=== PATIENT | female | born 1935 | race Caucasian/White ===

== ENCOUNTER 2019-01-11 13:28 | Inpatient (IN) | payer MEDICARE ==
[~2019-01-11] VITALS: Ht 157.5 cm; Wt 68.0 kg
[2019-01-11] MEDS ORDERED: CYAN100T3 PO (14:07)
[2019-01-11] MEDS ORDERED: NADO80TA14 PO (14:07)
[2019-01-11] MEDS ORDERED: MEMA10TA21 PO (14:07)
[2019-01-11] MEDS ORDERED: MULT-1168 PO (14:07)
[2019-01-11] MEDS ORDERED: CALC1TAB PO (14:07)
[2019-01-11] MEDS ORDERED: ASPI-1169 PO (14:07)
--- NOTE | 2019-01-11 14:35 | NUR ---
PT RE C'D TO ER VIA EMS PT FELL DOWN 3 STEPS RT EYE SWOLLEN AND UPPER LIP LAC POSS KO SENT TO CT IV STARTED 20G RT WRIST LABS DRAWN SENT VSS
[2019-01-11 14:37] LABS: BASOPHILS # (AUTO) 0.1 /CMM (0.0-0.2); BASOPHILS % (AUTO) 0.5 % (0.0-2.0); EOSINOPHILS % (AUTO) 0.3 % (0.0-6.0); HEMATOCRIT 41 % (33-45); HEMOGLOBIN 13.6 g/dL (11.5-14.8); LYMPHOCYTES # (AUTO) 1.9 /CMM (0.8-4.8); LYMPHOCYTES % (AUTO) 14.3 % (20.0-44.0); MEAN CORPUSCULAR HGB CONC 33 g/dl (31.0-36.0); MEAN CORPUSCULAR VOLUME 92 fL (82-100); MONOCYTES % (AUTO) 7.2 % (2.0-12.0); NEUTROPHILS # (AUTO) 10.6 /CMM (1.8-8.9); NEUTROPHILS % (AUTO) 77.7 % (43.0-81.0); PLATELET COUNT (AUTO) 298 /CMM (150-450); RED BLOOD CELL COUNT(AUTO) 4.46 MIL/uL (4.0-5.2); WHITE BLOOD COUNT (AUTO) 13.6 K/uL (4.3-11.0)
[2019-01-11 14:50] LABS: CALCIUM, SERUM 9.6 mg/dL (8.5-10.1); CARBON DIOXIDE 30 mmol/L (21-32); CHLORIDE 105 mmol/L (98-107); CREATININE 0.9 mg/dL (0.6-1.3); GLUCOSE 147 mg/dL (74-106); POTASSIUM 4.2 mmol/L (3.5-5.1); SODIUM SERUM 142 mmol/L (136-145); UREA NITROGEN, BLOOD 15 mg/dL (7-18)
[2019-01-11] MEDS ORDERED: LIDOCAINE 1% INJ 50 ML MDV IJ ONE (14:55)
--- NOTE | 2019-01-11 14:55 | NUR ---
CALLED FOR TELE BED, TURNED IN MOVE SHEET
[2019-01-11 14:56] LABS: ALANINE AMINOTRANSFERASE 19 U/L (12-78); ALBUMIN 3.2 g/dL (3.4-5.0); ALKALINE PHOSPHATASE 92 U/L (46-116); ASPARTATE AMINOTRANSFERASE 17 U/L (15-37); BILIRUBIN,DIRECT 0.2 mg/dL (0.0-0.2); BILIRUBIN,TOTAL 1.2 mg/dL (0.2-1.0)
--- NOTE | 2019-01-11 15:18 | NUR ---
UP GRADED TO ICU, PER DR MATHEWS
[2019-01-11] MEDS ORDERED: LEVETIRACETAM (500MG) 500 MG in IV NS 0.9% 100 ML IV ONE (15:30)
--- NOTE | 2019-01-11 16:05 | NUR ---
PAGED EPIC DR MENDOZA)
--- NOTE | 2019-01-11 16:11 | NUR ---
ICU BED 263
--- NOTE | 2019-01-11 16:28 | NUR ---
PT GIVEN KEPPRA IVP PER MD ORDER
[2019-01-11] MEDS ORDERED: ONDANSETRON HCL/PF 4 MG/2 ML VIAL IVP PRN (17:30)
[2019-01-11] MEDS ORDERED: ACETAMINOPHEN 325 MG TABLET PO PRN (17:30)
[2019-01-11] MEDS ORDERED: MAG HYDROX/AL HYDROX/SIMETH 30 ML UDC PO PRN (17:30)
[2019-01-11] MEDS ORDERED: MAGNESIUM HYDROXIDE 30 ML UDC PO PRN (17:30)
[2019-01-11] MEDS ORDERED: Z GUARD REMEDY 2 OZ OINT TP PRN (17:30)
[2019-01-11] MEDS ORDERED: ZOLPIDEM TARTRATE 5 MG TABLET PO PRN (17:30)
[2019-01-11] MEDS ORDERED: HYDROCODONE/APAP 5/325MG 1 EACH TABLET PO PRN (17:30)
[2019-01-11] MEDS ORDERED: hydrALAZINE HCL 25 MG TABLET PO PRN (17:30)
[2019-01-11] MEDS ORDERED: MORPHINE SULFATE INJ 2 MG/ML DISP.SYRIN IV PRN (17:30)
[2019-01-11] MEDS ORDERED: NADOLOL 40 MG TABLET PO SCH (18:00)
--- NOTE | 2019-01-11 18:13 | NUR ---
REPORT GIVEN TO NABOR SANABRIA FOR [facility],TRANFER TO ICU 263 MONITORED WITH ERICK RODRIGUES AND ERIC SANABRIA.
[2019-01-11 18:30] VITALS: BP 113/49
--- NOTE | 2019-01-11 18:30 | NUR ---
RN NOTES RECEIVED PT FROM ER IN ROOM 263, ICU STATUS , PT IS A/Ox1, MOVES ALL EXTREMITIES , CONFUSED , ON RA , NO SOB NOTED, ON TELE SR HR IN 60' , R FA IV SITE G 20 INTACT, SKIN PHOTO TAKEN,EDEMA AND ECCHYMOSIS NOTED TO R SIDE OF THE FACE, SR UP x3, CALL LIGHT WITHIN EASY REACH, BED LOCKED AND IN LOWEST POSITION, BED ALARM ON FOR PT SAFETY, WILL ENDOSE TO PRESS OPERATOR CARBON BLOCKS NURSE FOR CONTINUITY OF CARE .
[2019-01-11] MEDS: IV NS 0.9% 1,000 ML IV PRN (18:41)
[2019-01-11 18:45] VITALS: BP 109/60
[2019-01-11 20:00] VITALS: BP_SYST 100; BP_SYST 106; BP_DIAS 40; BP_DIAS 54
--- NOTE | 2019-01-11 20:00 | NUR ---
PATENT AGENT NOTES RECEIVED PTS IN BED AWAKE ALERT AND CONFUSED , ON MONITOR SINUS RHYTM , V/S STABLE AFEBRILE , ON R/A SATING 98% NO SOB NO DISTRESS NOTED , BREATHING EVEN AND UNLABORED .PTS WITH IV HEPLOCK ON RIGHT FA G#20 INTACT AND PATENT IVF OF NS AT 75CC/HR INFUSING WELL. ALL NEEDS ATTENDED TOO CALL LIGHT WITHIN REACH , LOPRESSOR ON HOLD D/T BP 100/52 , KEPT PTS CLEAN DRY AND COMFORTABLE . NEURO CHECK DONE ORDERED PTS ALERT ORIENTED WITH CONFUSION .WILL CONTINUE TO MONITOR PTS.FAMILY AT BEDSIDE AND SON MANJINDER UPDATED WITH PTS CONDITION .
[2019-01-11] MEDS: METOPROLOL TARTRATE 50 MG TABLET PO SCH (21:00)
[2019-01-11 21:01] VITALS: BP 101/54
[2019-01-11 22:01] VITALS: BP 108/52
[2019-01-11 23:00] VITALS: BP 96/58
[2019-01-12] VITALS (32 sets, daily range): BP systolic 93–136; BP diastolic 37–74
--- NOTE | 2019-01-12 00:31 | NUR ---
RAIL LOADER NOTES TEMP OF 99.9 -TYLENOL 650MG GIVEN ORDERED, WILL CONTINUE TO MONITOR .
--- NOTE | 2019-01-12 04:00 | NUR ---
agricultural science professor notes temp recheck 98.5 pts remains alert and responsive with period of confusion kristy tejas at bedside updated with pts condition, will endorse to rn day shift for continuity of care.
[2019-01-12 04:44] LABS: BASOPHILS # (AUTO) 0.1 /CMM (0.0-0.2); BASOPHILS % (AUTO) 0.5 % (0.0-2.0); EOSINOPHILS % (AUTO) 0.2 % (0.0-6.0); HEMATOCRIT 34 % (33-45); HEMOGLOBIN 11.5 g/dL (11.5-14.8); LYMPHOCYTES # (AUTO) 3.2 /CMM (0.8-4.8); LYMPHOCYTES % (AUTO) 33.5 % (20.0-44.0); MEAN CORPUSCULAR HGB CONC 34 g/dl (31.0-36.0); MEAN CORPUSCULAR VOLUME 92 fL (82-100); MONOCYTES # (AUTO) 1.3 /CMM (0.1-1.30); MONOCYTES % (AUTO) 13.2 % (2.0-12.0); NEUTROPHILS # (AUTO) 5.1 /CMM (1.8-8.9); NEUTROPHILS % (AUTO) 52.6 % (43.0-81.0); PLATELET COUNT (AUTO) 233 /CMM (150-450); WHITE BLOOD COUNT (AUTO) 9.7 K/uL (4.3-11.0)
[2019-01-12 05:03] LABS: CALCIUM, SERUM 8.7 mg/dL (8.5-10.1); CARBON DIOXIDE 26 mmol/L (21-32); CHLORIDE 107 mmol/L (98-107); CREATININE 0.8 mg/dL (0.6-1.3); GLUCOSE 109 mg/dL (74-106); PHOSPHORUS 3.2 mg/dL (2.5-4.9); POTASSIUM 3.6 mmol/L (3.5-5.1); SODIUM SERUM 140 mmol/L (136-145); UREA NITROGEN, BLOOD 17 mg/dL (7-18)
[2019-01-12 05:10] LABS: CHOLESTEROL 132 mg/dL (<200); HDL CHOLESTEROL 36 mg/dL (40-60); LDL 88 mg/dL (0-99); TRIGLYCERIDES 60 mg/dL (30-150)
--- NOTE | 2019-01-12 07:11 | NUR ---
RECEIVED CARE OF PATIENT. AWAKE AND ALERT A/OX2 FORGETFUL AT BASELINE PER AT BEDSIDE. PATIENT TELE NSR. IV SITE C/D/I/ WITH IVF PER ORDER. PATIENT AND STAT RIGHT EYE WAS SWOLLEN SHUT AND TODAY SWELLING DECREASED AND PATIENT IS WITHOUT BLURRY OR ALTERED VISION. SUTURES IN PLACE RIGHT LIP/ NO S/S INFECTION. PATIENT SKIN, SAFETY, ASPIRATION PRECAUTIONS IN PLACE AND WILL MONITOR
[2019-01-12] MEDS: METOPROLOL TARTRATE 50 MG TABLET PO SCH ×2 (08:06→21:47)
[2019-01-12] MEDS: IV NS 0.9% 1,000 ML IV PRN (08:06)
[2019-01-12] MEDS: MEMANTINE HCL 5 MG TABLET PO SCH ×2 (09:16→16:49)
--- NOTE | 2019-01-12 16:07 | NUR ---
NOTIFIED DR LATIF OF PATIENT UPDATED HEAD CT. PER MD HOLD DISCHARGE AND ORDER ANOTHER REPEAT HEAD CT IN THE AM 01/13
[2019-01-12] MEDS ORDERED: NADOLOL 40 MG TABLET PO SCH (18:00)
--- NOTE | 2019-01-12 18:52 | NUR ---
ALL DUE MEDS GIVEN AND ALL NEEDS MET. PATIENT CALM AND COOPERATIVE. NO S/S BLEEDING. ZUHAIR VISUAL DEFECTS. SWELLING DIMINISHED PER PATIENT AND TO FACE. SKIN, SAFETY, ASPIRATION , AND FALL PRECAUTIONS IN PLACE AND MONITORED.
--- NOTE | 2019-01-12 20:00 | NUR ---
STOCK RANCH SUPERVISOR NOTE RECEIVED PT IN BED A/O X 2, FORGETFUL AND CONFUSED. AT BED SIDE. NO SOB, NO DISTRESS OR DISCOMFORT NOTED. DENIES ANY PAIN. RT SIDE FACE WITH SWELLING AND BRUISES. SUTURES ON RIGHT UPPER LIP, INTACT AND NO S/S OF INFECTION OR BLEEDING NOTED. RFA #20 G INFUSING NS @ 75 ML/HR, NO S/S OF INFILTRATION NOTED. ALL NEEDS ATTENDED. SIDE RAILS UP X 2 AND CALL LIGHT WITHIN REACH. VSS. CONTINUE TO MONITOR HER.
[2019-01-13] VITALS (15 sets, daily range): BP systolic 90–139; BP diastolic 37–83
--- NOTE | 2019-01-13 03:00 | NUR ---
OFFICE CLINICIAN NOTE PT IS VERY CONFUSED AND FORGETFUL KEPT ON PULLING WIRES AND KEPT ON GETTING OUT OF BED. REORIENTED HER OF SURROUNDINGS AND KEPT BED ALARM ON. WATCHED HER CLOSELY FOR SAFETY.
[2019-01-13] MEDS: IV NS 0.9% 1,000 ML IV PRN (04:51)
--- NOTE | 2019-01-13 06:59 | NUR ---
SHAREPOINT TRAINER NOTE PT IN BED AWAKE. CONFUSED. KEPT ON GETTING OUT OF BED. WATCHED HER CLOSED DURING THE NIGHT. NO FALLS OR INJURY NOTED. ALL NEEDS ATTENDED. ON TELE MONITOR SB HR 56. IVF NS INFUSING WELL, NO S/S OF INFILTRATION NOTED. SIDE RAILS UP X 2 AND CALL LIGHT WITHIN REACH. WILL ENDORSE TO DAY SHIFT NURSE FOR CONTINUE TO CARE.
--- NOTE | 2019-01-13 07:30 | NUR ---
EXPORT FREIGHT SPECIALIST OPENING NOTE RECEIVED REPORT FROM PM NURSE. PT IN BED A/O X 1, FORGETFUL AND CONFUSED. NO SOB, NO DISTRESS OR DISCOMFORT NOTED.ON ROOM AIR. DENIES ANY PAIN. RT SIDE FACE WITH SWELLING AND BRUISES. SUTURES ON RIGHT UPPER LIP, INTACT AND NO S/S OF INFECTION OR BLEEDING NOTED. RFA #20 G INFUSING NS @ 75 ML/HR, NO S/S OF INFILTRATION NOTED. ALL NEEDS ATTENDED. SIDE RAILS UP X 2 AND CALL LIGHT WITHIN REACH. BED IS LOCKED AND IN LOW POSITION.BED ALARM ON. CONTINUE TO MONITOR .
[2019-01-13] MEDS: METOPROLOL TARTRATE 50 MG TABLET PO SCH (08:06)
[2019-01-13] MEDS: MEMANTINE HCL 5 MG TABLET PO SCH (08:22)
--- NOTE | 2019-01-13 09:00 | NUR ---
ANIMAL RIDE ATTENDANT NOTE PATIENT IS NON COMPLAINT WITH SAFETY INSTRUCTIONS.KEEP ON GETTING UP FROM BED AND REMOVING TUBES AND LINES.ABLED BILATERAL SOFT RESTRAINT.WILL CONTINUE TO MONITOR.
--- NOTE | 2019-01-13 13:23 | NUR ---
KOSHER DIETARY SERVICE MANAGER NOTE SEEN BY ,UPDATED ABOUT PATIENT CONDITION WITH CT RESULT.OK TO D/C HOME.SPOKE TO PATIENT .DISCHARGE INSTRUCTIONS GIVEN TO PATIENT AND .EXIT CARE GIVEN .VERBALIZED UNDERSTANDING.ANSWERED ALL QUESTIONS. SPECIAL EDUCATION GIVEN ABOUT FALL PREVENTION AND S/S TO MONITOR.SIGNED BELONGING SHEET.VITAL SIGNS STABLE.WILL CONTINUE TO MONITOR.
--- NOTE | 2019-01-13 13:40 | NUR ---
DIRECTOR OF CLINICAL SERVICES NOTE PATIENT D/C HOME WITH IN STABLE CONDITION.NO SOB NO DISTRESS NOTED.AXOX1 WITH CONFUSION AND FORGETFULNESS.DISCHARGE INSTRUCTIONS GIVEN BY TO PATIENT AND FAMILY.VERBALIZED UNDERSTANDING.SPECIAL INSTRUCTIONS GIVEN REGARDING AFTER AND FOLLOW UP.TOOK ALL BELONGINGS AND DISCHARGE SUMMARY..IV REMOVED .PRESSURE DRESSING APPLIED.ACCOMPANIED TO PARKING LOT.LEFT WITH IN PRIVATE CAR.
== END 2019-01-13 13:40 | disposition home or self-care (01) | DRG 85 ==
LOC: ER 13:31 → ICU 16:17
PROVIDERS: ADMIT Internal Medicine; ATTEND Internal Medicine
PROC: 0CQ0XZZ Repair Upper Lip, External Approach (ICD-10-PCS; principal; 2019-01-11)
DX: S06.6X0A Traumatic subarachnoid hemorrhage without loss of consciousness, initial encounter (principal); S06.1X0A Traumatic cerebral edema without loss of consciousness, initial encounter; G30.9 Alzheimer's disease, unspecified; F02.80 Dementia in other diseases classified elsewhere, unspecified severity, without behavioral disturbance, psychotic disturbance, mood disturbance, and anxiety; I10 Essential (primary) hypertension; K21.9 Gastro-esophageal reflux disease without esophagitis; T44.7X5A Adverse effect of beta-adrenoreceptor antagonists, initial encounter; Y92.89 Other specified places as the place of occurrence of the external cause; W19.XXXA Unspecified fall, initial encounter; S00.03XA Contusion of scalp, initial encounter; J32.4 Chronic pansinusitis; D72.829 Elevated white blood cell count, unspecified; S09.93XA Unspecified injury of face, initial encounter; R00.1 Bradycardia, unspecified; S01.511A Laceration without foreign body of lip, initial encounter; E78.5 Hyperlipidemia, unspecified; R40.2412 Glasgow coma scale score 13-15, at arrival to emergency department
CPT/HCPCS: 36415; 70450-TC; 70486-TC; 71045-TC; 72125-TC; 80048-TC; 80061-TC; 80076-TC; 83735-TC; 84100-TC; 84484-TC; 85025-TC; 85730-TC; 87081-TC; 93307-TC; 97116-TC; 97530-TC; A6403; G0378; J1953; J3490; J7030

== ENCOUNTER 2019-07-04 10:03 | Inpatient (IN) | payer MEDICARE ==
[~2019-07-04] VITALS: Ht 170.2 cm; Wt 56.7 kg
[~2019-07-04 10:03] MED LIST: CALC1TAB PO; CYAN100T3 PO; MEMA10TA56 PO; MULT-1168 PO
--- NOTE | 2019-07-04 10:15 | NUR ---
PEPE ROSS 86 From Home " said she tripped and fell. Pain R Hip" Patient a/ox4, breathing even and unlabored, no sob noted, needs attended, patient positioned on her left side. Pain 4/10 at this time.
[2019-07-04] MEDS ORDERED: FENTANYL PF 100MCG/2ML AMPUL ONE (10:47)
[2019-07-04 10:55] LABS: BASOPHILS # (AUTO) 0.1 /CMM (0.0-0.2); BASOPHILS % (AUTO) 0.6 % (0.0-2.0); EOSINOPHILS % (AUTO) 0.7 % (0.0-6.0); HEMATOCRIT 34 % (33-45); HEMOGLOBIN 10.8 g/dL (11.5-14.8); LYMPHOCYTES % (AUTO) 15.3 % (20.0-44.0); MEAN CORPUSCULAR HGB CONC 32 g/dl (31.0-36.0); MEAN CORPUSCULAR VOLUME 84 fL (82-100); MONOCYTES % (AUTO) 7.8 % (2.0-12.0); NEUTROPHILS # (AUTO) 10.1 /CMM (1.8-8.9); NEUTROPHILS % (AUTO) 75.6 % (43.0-81.0); PLATELET COUNT (AUTO) 309 /CMM (150-450); RED BLOOD CELL COUNT(AUTO) 4.02 MIL/uL (4.0-5.2); WHITE BLOOD COUNT (AUTO) 13.3 K/uL (4.3-11.0)
--- NOTE | 2019-07-04 10:56 | NUR ---
IV LINE ESTABLISHED BLOOD DRAWN AND SENT TO LAB.
[2019-07-04] MEDS ORDERED: FENTANYL PF 100MCG/2ML AMPUL IV ONE (11:00)
[2019-07-04] MEDS ORDERED: MORPHINE SULFATE INJ 2 MG/ML DISP.SYRIN IV ONE (11:00)
[2019-07-04 11:03] LABS: CALCIUM, SERUM 9.4 mg/dL (8.5-10.1); CARBON DIOXIDE 31 mmol/L (21-32); CHLORIDE 106 mmol/L (98-107); CREATININE 0.8 mg/dL (0.6-1.3); GLUCOSE 132 mg/dL (74-106); POTASSIUM 4.3 mmol/L (3.5-5.1); SODIUM SERUM 143 mmol/L (136-145); UREA NITROGEN, BLOOD 16 mg/dL (7-18)
[2019-07-04] MEDS ORDERED: ASPI-605 PO (11:17)
[2019-07-04] MEDS ORDERED: DONE10TA11 PO (11:17)
[2019-07-04] MEDS ORDERED: NADO40TA18 PO (11:18)
--- NOTE | 2019-07-04 11:58 | NUR ---
CALLED [facility], WAITING FOR CALL BACK.
--- NOTE | 2019-07-04 12:10 | NUR ---
NURSING SUP NOTIFIED FOR BED ASSIGNMENT.
--- NOTE | 2019-07-04 12:10 | NUR ---
NAHUN ADLER, WAITING FOR CALL BACK.
--- NOTE | 2019-07-04 12:22 | NUR ---
MD FREDIS GAVIRIA.
--- NOTE | 2019-07-04 13:07 | NUR ---
followed up with nursing keypunch operators supervisor re: bed assignment
--- NOTE | 2019-07-04 13:30 | NUR ---
report given to Olvin SANABRIA for [facility]
--- NOTE | 2019-07-04 14:05 | NUR ---
patient transferred to room 203-1 in stable condition. Masterson catheter FR16 placed in via sterile technique.
--- NOTE | 2019-07-04 14:15 | NUR ---
MS RN OPENING NOTES RECEIVED PATIENT FROM ER VIA [facility]. ORIENTED PATIENT TO ROOM, CALL LIGHT AND UNIT. HOB ELEVATED. NO SOB. DENIES ANY C/O PAIN NOR DISCOMFORT AT THIS TIME DESPITE RIGHT HIP FRACTURE. CHARLES CATH INTACT DRAINING YELLOW COLORED URINE VIA BEDSIDE. IV ACCESS RT FA. SL INTACT AND PATENT. BED IN LOWEST POSITION, LOCKED. BED ALARM ON. CALL LIGHT WITHIN REACH. AT BEDSIDE.
[2019-07-04 16:00] VITALS: BP 127/60
[2019-07-04] MEDS ORDERED: ONDANSETRON HCL/PF 4 MG/2 ML VIAL IVP PRN (16:00)
[2019-07-04] MEDS ORDERED: MAGNESIUM HYDROXIDE 30 ML UDC PO PRN (16:00)
[2019-07-04] MEDS ORDERED: ACETAMINOPHEN 325 MG TABLET PO PRN (16:00)
[2019-07-04] MEDS ORDERED: Z GUARD REMEDY 2 OZ OINT TP PRN (16:00)
[2019-07-04] MEDS ORDERED: MORPHINE SULFATE INJ 2 MG/ML DISP.SYRIN IV PRN (16:00)
[2019-07-04] MEDS: DONEPEZIL 5 MG TABLET PO SCH (16:46)
[2019-07-04] MEDS: MEMANTINE HCL 5 MG TABLET PO SCH (16:46)
--- NOTE | 2019-07-04 19:20 | NUR ---
MS RN CLOSING NOTES ALERT AND ORIENTED X1. HOB ELEVATED. NO SOB. DENIES ANY C/O PAIN NOR DISCOMFORT AT THIS TIME EXCEPT DURING REPOSITIONING. PATIENT DENIES ANY PAIN NOR DISCOMFORT DURING INACTIVITY. PATIENT REQUIRES FREQUENT REMINDERS AND RE EDUCATION DUE TO CONFUSION AND FORGETFULNESS. CHARLES CATH INTACT DRAINING YELLOW COLORED URINE VIA BEDSIDE. IV ACCESS RT FA. SL INTACT AND PATENT. BED IN LOWEST POSITION, LOCKED. BED ALARM ON. CALL LIGHT WITHIN REACH. AND SON AT BEDSIDE.
--- NOTE | 2019-07-04 19:30 | NUR ---
SPECIAL FORCES ENGINEER SERGEANT: RECEIVED REPORT FROM DEWEY SANABRIA AT 1920. MET WITH PT AND FAMILY AT BED SIDE. PT HAS DEMENTIA, AND CONSTANTLY ASKING SAME QUESTIONS EVERY NOW AND THEN, HOWEVER PT APPEARS TO BE VERY PLEASANT AND CAN BE REDIRECTED. PT ADMITTED THIS AFTERNOON FOR S/P FALL WHEREIN SHE OBTAINED RIGHT HIP FRACTURE. SEEN BY ORTHO FOR RIGHT HIP HEMIARTHROPLASTY ON JUL 06 MORNING. SEEN BY CARTON LETTERING MACHINE OPERATOR FOR CARDIAC CLEARANCE AT 1915PM. IV ACCESS PATENT AND FLUSHING WELL, ON HL. DISCUSSED WITH PT AND FAMILY REGARDING PLAN OF CARE TONIGHT. ALL QUESTIONS/CONCERNS ANSWERED BASED ON PLAN OF CARE AND LATEST LAB/IMAGING RESULTS. SAFETY PRECAUTIONS FOR FALL INITIATED, CALL LIGHT IN REACH, WILL CONTINUE MONITORING PT.
[2019-07-04 20:00] VITALS: BP 111/61
[2019-07-04 20:00] LABS: APPEARANCE,URINE CLEAR (CLEAR); BILIRUBIN,URINE NEGATIVE (NEGATIVE); BLOOD, URINE LARGE Ery/uL (NEGATIVE); COLOR,URINE YELLOW (YELLOW); KETONES,URINE >=80 (NEGATIVE); LEUKOCYTE ESTERASE ,URINE NEGATIVE (NEGATIVE); NITRITE, URINE NEGATIVE (NEGATIVE); PH,URINE 7.5 (5.0-8.0); PROTEIN,URINE TRACE mg/dl (NEGATIVE); UGLUCOSE NEGATIVE (NEGATIVE); UROBILINOGEN,URINE 0.2 EU/dL (0.2)
--- NOTE | 2019-07-04 20:00 | NUR ---
RN NOTES: PER MD DEL CID, OKAY FOR /SON TO STAY OVERNIGHT FOR PT'S SAFETY, PT HAS DEMENTIA AND IS SUNDOWNER. HIGH RISK FOR FALL.
[2019-07-04 20:25] LABS: BACTERIA,URINE None seen /HPF (None Seen); RBC,URINE 51-80 /HPF (0-2); SQUAMOUS EPITHELIAL CELL,UR Few /HPF (None Seen)
[2019-07-04] MEDS: ENOXAPARIN SODIUM 40 MG/0.4 ML DISP.SYRIN SQ SCH (20:44)
[2019-07-04] MEDS ORDERED: ZOLPIDEM TARTRATE 5 MG TABLET PO PRN (22:00)
--- NOTE | 2019-07-05 06:00 | NUR ---
AM CARE: ASSISTED NURSE AUDITOR IN PROVIDING BED BATH TO PT. COMPLETE LINEN CHANGE PROVIDED.
--- NOTE | 2019-07-05 06:54 | NUR ---
END OF SHIFT SUMMARY: PT REMAINS A/O X1, DUE TO ADVANCE DEMENTIA/ALZHEIMER'S. PT'S SON STAYED WITH THE PT. PT ABLE TO MAKE HER NEEDS KNOWN. CHARLES CATHETER REMAINS IN PLACED, BAG DRAINING BY GRAVITY. IV ACCESS REMAINS PATENT AND FLUSHING WELL, ON HL. NO S/S OF IV INFILTRATION NOTED. PT REMAINS TO BE HIGH RISK FOR FALL. VS REMAINS STABLE, NEEDS ATTENDED. PT FOR SCHEDULE RIGHT HIP HEMIARTHROPLASTY ON SUNDAY MORNING JUL 06, [address] SHAFFER. SAFETY PRECAUTIONS FOR FALL REMAINS ENGAGED, CALL LIGHT IN REACH, WILL ENDORSE TO DAY RN FOR CONTINUITY OF CARE.
--- NOTE | 2019-07-05 07:10 | NUR ---
MS RN OPENING NOTES RECEIVED PATIENT IN BED ALERT AND AWAKE ORIENTED X1. NO SOB. DENIES ANY C/O PAIN NOR DISCOMFORT AT THIS TIME. CHARLES CATHETER INTACT AND PATENT DRAINING YELLOW COLORED URINE VIA GRAVITY VIA BEDSIDE. RT FA # 20 SL INTACT AND PATENT. BED IN LOWEST POSITION, LOCKED. BED ALARM ON. CALL LIGHT WITHIN REACH. BED SIDERAILS UP X2.
[2019-07-05 07:30] VITALS: BP_SYST 110; BP_SYST 123; BP_DIAS 66; BP_DIAS 69
[2019-07-05 07:51] LABS: CALCIUM, SERUM 9.3 mg/dL (8.5-10.1); CREATININE 0.8 mg/dL (0.6-1.3); MAGNESIUM 1.9 mg/dL (1.8-2.4); PHOSPHORUS 3.3 mg/dL (2.5-4.9); POTASSIUM 3.7 mmol/L (3.5-5.1)
[2019-07-05 07:52] LABS: BASOPHILS % (AUTO) 0.4 % (0.0-2.0); EOSINOPHILS % (AUTO) 0.1 % (0.0-6.0); HEMATOCRIT 30 % (33-45); HEMOGLOBIN 9.9 g/dL (11.5-14.8); LYMPHOCYTES # (AUTO) 2.7 /CMM (0.8-4.8); LYMPHOCYTES % (AUTO) 23.1 % (20.0-44.0); MEAN CORPUSCULAR HGB CONC 33 g/dl (31.0-36.0); MEAN CORPUSCULAR VOLUME 84 fL (82-100); MONOCYTES # (AUTO) 1.3 /CMM (0.1-1.30); MONOCYTES % (AUTO) 11.5 % (2.0-12.0); NEUTROPHILS # (AUTO) 7.5 /CMM (1.8-8.9); NEUTROPHILS % (AUTO) 64.9 % (43.0-81.0); PLATELET COUNT (AUTO) 271 /CMM (150-450); RED BLOOD CELL COUNT(AUTO) 3.62 MIL/uL (4.0-5.2); WHITE BLOOD COUNT (AUTO) 11.6 K/uL (4.3-11.0)
[2019-07-05] MEDS ORDERED: MULTIVITAMIN/LUTEIN/MINERALS 1 TAB PO SCH (09:00)
[2019-07-05] MEDS: CALCIUM CARB 600MG /VIT D 1 EACH TABLET PO SCH (10:04)
[2019-07-05] MEDS: MULTIPLE VIT (LYCOPENE/FA/MV,CA,IRON,MIN/LUT)1 TAB PO SCH (10:04)
[2019-07-05] MEDS: MEMANTINE HCL 5 MG TABLET PO SCH ×2 (10:05→18:14)
[2019-07-05] MEDS: DONEPEZIL 5 MG TABLET PO SCH (10:05)
[2019-07-05] MEDS: ASPIRIN EC 81 MG TABLET.DR PO SCH (10:05)
[2019-07-05] MEDS: IV NS 0.9% 1,000 ML IV PRN (12:55)
--- NOTE | 2019-07-05 17:52 | NUR ---
MS RN NOTES GERMAN BOND SPOKE TO PATIENT AND PATIENT'S AND DISCUSSED REGARDING RIGHT HIP INTRAMEDULLARY RODDING AND OBTAINED CONSENT AND ANSWERED ALL OF PATIENT'S AND FAMILY'S QUESTIONS.
--- NOTE | 2019-07-05 19:00 | NUR ---
MS RN NOTES ALERT AND AWAKE ORIENTED X1. NO S/S OF RESPIRATORY DISTRESS. DENIES ANY C/O PAIN NOR DISCOMFORT AT THIS TIME. CHARLES CATHETER INTACT AND PATENT DRAINING YELLOW COLORED URINE VIA GRAVITY VIA BEDSIDE. RT FA # 20 INTACT AND PATENT INFUSING NS @ 75ML/HR. BED IN LOWEST POSITION, LOCKED. BED ALARM ON. CALL LIGHT WITHIN REACH. BED SIDERAILS UP X2. FREQUENT VISUALLY CHECKED. AND SISTER AT BEDSIDE.
[2019-07-05 20:00] VITALS: BP 110/66
[2019-07-05] MEDS: ENOXAPARIN SODIUM 40 MG/0.4 ML DISP.SYRIN SQ SCH (20:57)
--- NOTE | 2019-07-05 22:00 | NUR ---
MS RN NOTES PATIENT PULLED PUT IV ACCESS TO LEFT FA. NEW IV ACCESS INSERTED TO RT WRIST #22 AND RIGHT AC # 20 WITH GOOD BLOOD RETURN. INTACT AND PATENT.
[2019-07-06] VITALS (11 sets, daily range): BP systolic 104–125; BP diastolic 48–84
--- NOTE | 2019-07-06 00:10 | NUR ---
MS RN NOTES PATIENT ASLEEP IN BED, AROUSABLE TO VERBAL AND TACTILE STIMULI. SON AT BEDSIDE.
--- NOTE | 2019-07-06 03:07 | NUR ---
MS RN NOTES VISUALLY CHECKED PATIENT, NOTED PATIENT DISROBING SELF. NEW GOWN PROVIDED,REALITY ORIENTATION AND REMINDERS PROVIDED.
[2019-07-06 06:22] LABS: BASOPHILS % (AUTO) 0.4 % (0.0-2.0); EOSINOPHILS % (AUTO) 0.5 % (0.0-6.0); HEMATOCRIT 28 % (33-45); LYMPHOCYTES # (AUTO) 2.6 /CMM (0.8-4.8); LYMPHOCYTES % (AUTO) 23.1 % (20.0-44.0); MEAN CORPUSCULAR HGB CONC 33 g/dl (31.0-36.0); MEAN CORPUSCULAR VOLUME 83 fL (82-100); MONOCYTES # (AUTO) 1.4 /CMM (0.1-1.30); MONOCYTES % (AUTO) 12.4 % (2.0-12.0); NEUTROPHILS % (AUTO) 63.6 % (43.0-81.0); PLATELET COUNT (AUTO) 246 /CMM (150-450); RED BLOOD CELL COUNT(AUTO) 3.33 MIL/uL (4.0-5.2)
[2019-07-06 06:39] LABS: CALCIUM, SERUM 8.6 mg/dL (8.5-10.1); CREATININE 0.7 mg/dL (0.6-1.3); MAGNESIUM 1.6 mg/dL (1.8-2.4); PHOSPHORUS 3.1 mg/dL (2.5-4.9); POTASSIUM 3.8 mmol/L (3.5-5.1)
[2019-07-06] MEDS: IV NS 0.9% 1,000 ML IV PRN (06:50)
--- NOTE | 2019-07-06 07:21 | NUR ---
MS RN OPENING NOTES RECEIVED PATIENT AWAKE IN BED IN NO ACUTE SIGN SOF DISTRESS. FAMILY AT BEDSIDE. A/O X1-2. VERBALLY RESPONSIVE, DENIES PAIN OR ANY DISCOMFORTS AT THIS TIME. ON ROOM AIR, BREATHING EVEN AND UNLABORED. PT FOR RIGHT HIP INTRAMEDULLARY RODDING TODAY, NPO MAINTAINED. CHARLES CATHETER INTACT AND PATENT DRAINING YELLOW COLORED URINE VIA GRAVITY AT BEDSIDE. RT WRIST # 22 SL AND RAC G#20 BOTH INTACT AND PATENT, IVF OF NS @ 75ML/HR INFUSING WELL. SAFETY MEASURES IN PLACE: BED IN LOWEST POSITION AND LOCKED. BED ALARM ON. CALL LIGHT WITHIN REACH. BED SIDE-RAILS UP X2. WILL CONTINUE TO MONITOR.
--- NOTE | 2019-07-06 07:21 | NUR ---
MS RN CLOSING NOTES PATIENT SLEPT ON AND OFF THROUGHOUT THE NIGHT. PATIENT WAKES UP AND LOOKS FOR . NO S/S OF RESPIRATORY DISTRESS. NPO SINCE MIDNIGHT FOR SURGERY SCHEDULED FOR RT HIP INTRAMEDULLARY RODDING WITH LOVENOX HELD ON 07/05/19. DENIES ANY C/O PAIN NOR DISCOMFORT AT THIS TIME. CHARLES CATHETER INTACT AND PATENT DRAINING YELLOW COLORED URINE VIA GRAVITY VIA BEDSIDE. RT WRIST # 22 SL INTACT AND PATENT. RT AC # 20 INTACT AND PATENT INFUSING NS @ 75ML/HR. NO S/S OF BLEEDING NOTED DURING THE SHIFT. BED IN LOWEST POSITION, LOCKED. BED ALARM ON. CALL LIGHT WITHIN REACH. BED SIDERAILS UP X2. IN NO APPARENT DISTRESS.
[2019-07-06] MEDS ORDERED: ANESTHESIA TRAY IN PYXIS 1 EA TRAY MC ONE (07:38)
[2019-07-06] MEDS ORDERED: BACITRACIN 50000 UNITS/VIAL ONE (07:39)
--- NOTE | 2019-07-06 07:48 | NUR ---
RN NOTES PT WHEELED BY O.RSenthil TRANSPORTER VIA HER BED TO SURGERY. FAMILY IN ROOM.
[2019-07-06] MEDS ORDERED: FENTANYL PF 100MCG/2ML AMPUL ONE (07:52)
[2019-07-06] MEDS: MEMANTINE HCL 5 MG TABLET PO SCH ×2 (09:00→16:59)
[2019-07-06] MEDS: DONEPEZIL 5 MG TABLET PO SCH (09:00)
[2019-07-06] MEDS: CYANOCOBALAMIN 100 MCG TABLET PO SCH (09:00)
[2019-07-06] MEDS: ASPIRIN EC 81 MG TABLET.DR PO SCH (09:00)
[2019-07-06] MEDS: CALCIUM CARB 600MG /VIT D 1 EACH TABLET PO SCH (09:00)
[2019-07-06] MEDS: MULTIPLE VIT (LYCOPENE/FA/MV,CA,IRON,MIN/LUT)1 TAB PO SCH (09:00)
--- NOTE | 2019-07-06 10:59 | NUR ---
RN NOTES PT RETURNED FROM SURGERY S/P RIGHT HIP IM RODDING BY DR SHAFFER. PT IS AWAKE, A/O X 1, RESTLESS AND TRYING TO PULL IV LINE AND CHARLES CATHETER. SEEN BY KATHERINE HOUSE WITH ORDER TO PUT PT ON HAND MITTENS FOR NOW UNTIL SHE CALM DOWN. PT ON ROOM AIR, TOLERATING WELL WITH NO SOB NOTED. B/L SCD'S IN PLACE. PT WITH TWO DRESSINGS IN PLACE: RIGHT HIP AND RIGHT LOWER THIGH, BOTH C/D/I. V.S CHECKED: BP 114/52, HP 59, R 18, T 97.8F AND SP02 99%. DR SHAFEFR WITH ORDER TO START LOVENOX 40MG SQ IN 24HRS IF HGB .9.WEIGHT BEARING IS WBAT. ALL POST OP ORDERS MADE PER MD ORDER. PT'S FAMILY AT BEDSIDE. WILL CONTINUE TO MONITOR.
[2019-07-06] MEDS: Magnesium 1GM/D5W 100ML PREMIX 100 ML IV SCH ×2 (12:03→13:37)
--- NOTE | 2019-07-06 14:25 | NUR ---
RN NOTES PATIENT CALM NOW, MORE RESPONSIVE AND ABLE TO FOLLOW COMMANDS. B/L HAND MITTENS REMOVED. WILL CONTINUE TO MONITOR
[2019-07-06] MEDS: ANCEF 1 GM/50 ML D5W IV SCH ×2 (16:06)
--- NOTE | 2019-07-06 18:32 | NUR ---
MS RN CLOSING NOTES PATIENT IN BED AWAKE WITH AT BEDSIDE. HOB ELEVATED. A/O X1-2, SAME VERBALLY RESPONSIVE. ON ROOM AIR, TOLERATING WELL WITH NO SOB NOTED. S/P RIGHT HIP INTRAMEDULLARY RODDING TODAY, DRESSING ON RIGHT HIP AND LOWER THIGH C/D/I. RT WRIST # 22 SL AND RAC G#20 BOTH INTACT AND PATENT, IVF OF NS @ 75ML/HR INFUSING WELL, NO S/S OF INFILTRATIONS NOTED. CHARLES CATHETER INTACT AND PATENT DRAINING CLEAR YELLOW COLORED URINE VIA GRAVITY AT BEDSIDE, CHARLES CARE DONE. SAFETY MEASURES KEPT IN PLACE: BED IN LOWEST POSITION AND LOCKED. BED ALARM ON. CALL LIGHT WITHIN REACH. BED SIDE-RAILS UP X2. ALL NEEDS AND CARE PROVIDED WELL. WILL ENDORSE TO MARINA DRY DOCK MANAGER NURSE FOR [facility].
--- NOTE | 2019-07-06 19:23 | NUR ---
MS/RN NOTES RECEIVED PT. LYING IN BED. PT. IS AWAKE, ALERT AND ORIENTED TO SELF. PT. IS CONFUSED AND NEEDS FREQUENT REORIENTATION. BREATHING EVEN AND UNLABORED ON ROOM AIR. NO SOB, RESPIRATORY DISTRESS OR COMPLAINTS OF PAIN NOTED AT THIS TIME. PT. WITH RIGHT WRIST 22 GAUGE IV SALINE LOCK PRESENT, PATENT AND INTACT. PT. WITH RIGHT AC 20 GAUGE PERIPHERAL IV PRESENT, PATENT AND INTACT ADMINISTERING TO PT. NS @ 75 ML/HR. PT. IS S/P RIGHT HIP IM RODDING TODAY 07/06/[address] SHAFFER. PT. HAS 2 POST OP DRESSING PRESENT ONE ON RIGHT HIP AND ONE ON RIGHT LOWER THIGH. BOTH DRESSINGS ARE CLEAN, DRY AND INTACT. NO BLEEDING OR DRAINAGE NOTED. PT. WITH CHARLES CATHETER PRESENT, PATENT AND INTACT. PT. PRESENT AT BEDSIDE. BED LOCKED AND IN LOWEST POSITION, SIDE RAILS UP X2, BED ALARM ON, CALL LIGHT WITHIN REACH, WILL CONTINUE TO MONITOR.
[2019-07-06] MEDS: HYDROCODONE/APAP 5/325MG 1 EACH TABLET PO PRN (23:51)
--- NOTE | 2019-07-06 23:52 | NUR ---
MS RN NOTE ADMINISTERED PRN NORCO 5MG FOR PAIN 4/10 IN RIGHT LEG AND KNEE.WILL CONTINUE TO MONITOR.
[2019-07-07] VITALS (9 sets, daily range): BP systolic 100–114; BP diastolic 44–65
[2019-07-07] MEDS: ANCEF 1 GM/50 ML D5W IV SCH ×4 (00:17→08:54)
[2019-07-07] MEDS: IV NS 0.9% 1,000 ML IV PRN (03:40)
--- NOTE | 2019-07-07 06:50 | NUR ---
MS/RN NOTES PT. IS LYING IN BED. PT. IS AWAKE, ALERT AND ORIENTED X 1-2. PT. IS CONFUSED AND NEEDS FREQUENT REORIENTATION. BREATHING EVEN AND UNLABORED ON ROOM AIR. NO SOB, RESPIRATORY DISTRESS OR COMPLAINTS OF PAIN NOTED AT THIS TIME. PT. WITH RIGHT WRIST 22 GAUGE IV SALINE LOCK PRESENT, PATENT AND INTACT. PT. WITH RIGHT AC 20 GAUGE PERIPHERAL IV PRESENT, PATENT AND INTACT ADMINISTERING TO PT. NS @ 75 ML/HR. PT. POST OP DRESSINGS PRESENT CLEAN, DRY AND INTACT. NO BLEEDING OR DRAINAGE NOTED. PT. WITH CHARLES CATHETER PRESENT, PATENT AND INTACT. ALL PT. NEEDS MET. PT. OFFLOADED, TURNED AND REPOSITIONED Q2H AND NEEDED. PT. DAUGHTER PRESENT AT BEDSIDE. BED LOCKED AND IN LOWEST POSITION, SIDE RAILS UP X2, BED ALARM ON, CALL LIGHT WITHIN REACH, WILL ENDORSE TO DAYSWVFT NURSE FOR CONTINUITY OF CARE.
[2019-07-07 07:16] LABS: BASOPHILS % (AUTO) 0.3 % (0.0-2.0); EOSINOPHILS % (AUTO) 0.5 % (0.0-6.0); HEMATOCRIT 22 % (33-45); HEMOGLOBIN 7.2 g/dL (11.5-14.8); LYMPHOCYTES # (AUTO) 3.7 /CMM (0.8-4.8); LYMPHOCYTES % (AUTO) 39.7 % (20.0-44.0); MEAN CORPUSCULAR HGB CONC 33 g/dl (31.0-36.0); MEAN CORPUSCULAR VOLUME 84 fL (82-100); MONOCYTES # (AUTO) 1.7 /CMM (0.1-1.30); MONOCYTES % (AUTO) 17.9 % (2.0-12.0); NEUTROPHILS # (AUTO) 3.9 /CMM (1.8-8.9); NEUTROPHILS % (AUTO) 41.6 % (43.0-81.0); PLATELET COUNT (AUTO) 191 /CMM (150-450); RED BLOOD CELL COUNT(AUTO) 2.63 MIL/uL (4.0-5.2); WHITE BLOOD COUNT (AUTO) 9.3 K/uL (4.3-11.0)
[2019-07-07 07:41] LABS: ALBUMIN 2.3 g/dL (3.4-5.0); BILIRUBIN,TOTAL 0.7 mg/dL (0.2-1.0); CALCIUM, SERUM 8.6 mg/dL (8.5-10.1); CREATININE 0.9 mg/dL (0.6-1.3); PHOSPHORUS 3.1 mg/dL (2.5-4.9); TOTAL PROTEIN, SERUM 5.9 g/dL (6.4-8.2)
--- NOTE | 2019-07-07 08:00 | NUR ---
MS RN NOTES PATIENT IN BED RESTING. ALERT, ORIENTED X2. DAUGHTER AT BEDSIDE. NO SOB OR ACUTE DISTRESS NOTED. CHARLES CATH INTACT PATIENT. PERIPHERAL IV INTACT PATENT. BED IN LOW LOCKED POSITION. CALL LIGHT WITHIN REACH. WILL CONTINUE TO MONITOR.
[2019-07-07] MEDS: ASPIRIN EC 81 MG TABLET.DR PO SCH (08:54)
[2019-07-07] MEDS: MULTIPLE VIT (LYCOPENE/FA/MV,CA,IRON,MIN/LUT)1 TAB PO SCH (08:54)
[2019-07-07] MEDS: DONEPEZIL 5 MG TABLET PO SCH (08:54)
[2019-07-07] MEDS: MEMANTINE HCL 5 MG TABLET PO SCH ×2 (08:54→17:06)
[2019-07-07] MEDS: HYDROCODONE/APAP 5/325MG 1 EACH TABLET PO PRN ×3 (08:55→17:06)
[2019-07-07] MEDS: CALCIUM CARB 600MG /VIT D 1 EACH TABLET PO SCH (08:55)
[2019-07-07] MEDS: ENOXAPARIN SODIUM 40 MG/0.4 ML DISP.SYRIN SQ SCH (09:00)
--- NOTE | 2019-07-07 18:55 | NUR ---
MS RN NOTES PATIENT IN BED RESTING NO SOB OR ACUTE DISTRESS NOTED. PATIENT ALERT. ORIENTED X2. ALL DUE MEDICATIONS ADMINISTERED. BLOOD TRANSFUSION OF 1 UNIT ADMINISTERED. TOLERATED WELL. PATIENT WAS SEEN BY PT AND OT. ALL DUE MEDICATIONS ADMINISTERED. ALL NEEDS MET. WILL ENDORSE CARE TO PM SHIFT.
--- NOTE | 2019-07-07 19:15 | NUR ---
MS/RN NOTES RECEIVED PT. SITTING UP IN BED. PT. IS AWAKE, ALERT AND ORIENTED TO SELF. PT. IS CONFUSED AND NEEDS FREQUENT REORIENTATION. BREATHING EVEN AND UNLABORED ON ROOM AIR. NO SOB, RESPIRATORY DISTRESS OR COMPLAINTS OF PAIN NOTED AT THIS TIME. PT. WITH LEFT FOREARM 20 GAUGE PERIPHERAL IV PRESENT, PATENT AND INTACT ADMINISTERING TO PT. NS @ 75 ML/HR. PT. WITH CHARLES CATHETER PRESENT, PATENT AND INTACT. PT. AND DAUGHTER PRESENT AT BEDSIDE. BED LOCKED AND IN LOWEST POSITION, SIDE RAILS UP X2, BED ALARM ON, CALL LIGHT WITHIN REACH, WILL CONTINUE TO MONITOR.
[2019-07-08] VITALS (7 sets, daily range): BP systolic 97–120; BP diastolic 48–58
[2019-07-08] MEDS: IV NS 0.9% 1,000 ML IV PRN (00:58)
--- NOTE | 2019-07-08 06:50 | NUR ---
MS/RN NOTES PT. IS LYING IN BED. PT. IS AWAKE, ALERT AND ORIENTED TO SELF. PT. IS CONFUSED AND NEEDS FREQUENT REORIENTATION. BREATHING EVEN AND UNLABORED ON ROOM AIR. NO SOB, RESPIRATORY DISTRESS OR COMPLAINTS OF PAIN NOTED AT THIS TIME. PT. WITH LEFT FOREARM 20 GAUGE PERIPHERAL IV PRESENT, PATENT AND INTACT ADMINISTERING TO PT. NS @ 75 ML/HR. PT. WITH CHARLES CATHETER PRESENT, PATENT AND INTACT. PT. DAUGHTER PRESENT AT BEDSIDE. ALL PT. NEEDS MET. PT. OFFLOADED, TURNED AND REPOSITIONED Q2H AND NEEDED. BED LOCKED AND IN LOWEST POSITION, SIDE RAILS UP X2, BED ALARM ON, CALL LIGHT WITHIN REACH, WILL ENDORSE TO DAYSHIFT NURSE FOR CONTINUITY OF CARE.
[2019-07-08 06:52] LABS: BASOPHILS % (AUTO) 0.4 % (0.0-2.0); CALCIUM, SERUM 8.4 mg/dL (8.5-10.1); CREATININE 0.6 mg/dL (0.6-1.3); EOSINOPHILS % (AUTO) 0.9 % (0.0-6.0); HEMATOCRIT 23 % (33-45); HEMOGLOBIN 7.8 g/dL (11.5-14.8); LYMPHOCYTES # (AUTO) 2.6 /CMM (0.8-4.8); LYMPHOCYTES % (AUTO) 23.9 % (20.0-44.0); MAGNESIUM 1.8 mg/dL (1.8-2.4); MEAN CORPUSCULAR HGB CONC 34 g/dl (31.0-36.0); MEAN CORPUSCULAR VOLUME 83 fL (82-100); MONOCYTES # (AUTO) 1.4 /CMM (0.1-1.30); MONOCYTES % (AUTO) 12.8 % (2.0-12.0); NEUTROPHILS # (AUTO) 6.7 /CMM (1.8-8.9); PHOSPHORUS 2.5 mg/dL (2.5-4.9); PLATELET COUNT (AUTO) 178 /CMM (150-450); POTASSIUM 3.9 mmol/L (3.5-5.1); WHITE BLOOD COUNT (AUTO) 10.9 K/uL (4.3-11.0)
[2019-07-08] MEDS: CALCIUM CARB 600MG /VIT D 1 EACH TABLET PO SCH (08:34)
[2019-07-08] MEDS: MULTIPLE VIT (LYCOPENE/FA/MV,CA,IRON,MIN/LUT)1 TAB PO SCH (08:34)
[2019-07-08] MEDS: ASPIRIN EC 81 MG TABLET.DR PO SCH (08:34)
[2019-07-08] MEDS: CYANOCOBALAMIN 100 MCG TABLET PO SCH (08:34)
[2019-07-08] MEDS: MEMANTINE HCL 5 MG TABLET PO SCH ×2 (08:35→17:30)
[2019-07-08] MEDS: DONEPEZIL 5 MG TABLET PO SCH (08:35)
[2019-07-08] MEDS: ENOXAPARIN SODIUM 40 MG/0.4 ML DISP.SYRIN SQ SCH (08:40)
--- NOTE | 2019-07-08 08:41 | NUR ---
MS RN NOTES HELD LOVENOX S/P BLOOD TRANSFUSION. CURRENT HGB 7.8
[2019-07-08 10:44] LABS: IRON, SERUM 18 ug/dl (50-175); TOTAL IRON BINDING CAPACITY 213 ug/dl (250-450)
[2019-07-08 10:50] LABS: FERRITIN 45 ng/mL (8-388)
[2019-07-08] MEDS ORDERED: HYDR-3972 PO (13:29)
[2019-07-08] MEDS: HYDROCODONE/APAP 5/325MG 1 EACH TABLET PO PRN (17:30)
--- NOTE | 2019-07-08 19:15 | NUR ---
MS DUMPER/CLOSING NOTES PATIENT ALERT AND ORIENTEDX1. NO S/S OR RESPIRATORY DISTRESS. DENIES ANY C/O PAIN NOR DISCOMFORT AST THIS TIME. DISCHARGE INSTRUCTIONS AND PACKET GIVEN TO PATIENT AND EMT. REPORT GIVEN TO DANIELE DEY AT [facility]. S/P BLOOD TRANSFUSION BELEM WELL. RELAYED TO YISSEL NOT TO REMOVE DRESSING UNTIL SEEN BY ORTH IN F/U CLINIC ALSO RELAYED TO YISSEL TO HOLD LOVENOX UNTIL HGB> 9. CHARLES CATH REMOVED BELEM WELL. IV ACCESS REMOVED WITH CATHETER TIP INTACT. PATIENT DID NOT WANT TO TAKE PICTURES TO BE TAKEN AT THIS TIME. DRESSING TO RT LEG INTACT. NO S/S OF BLEEDING NOTED. LEFT VIA GURNEY IN STABLE CONDITION.
== END 2019-07-08 19:05 | DRG 481 ==
LOC: ER 10:07 → MEDSG2 13:33
PROVIDERS: ADMIT Nurse Practitioner Acute Care; ATTEND Nurse Practitioner Acute Care
PROC: 0QS606Z Reposition Right Upper Femur with Intramedullary Internal Fixation Device, Open Approach (ICD-10-PCS; principal; 2019-07-06)
PROC: 30233N1 Transfusion of Nonautologous Red Blood Cells into Peripheral Vein, Percutaneous Approach (ICD-10-PCS; 2019-07-07)
DX: S72.141A Displaced intertrochanteric fracture of right femur, initial encounter for closed fracture (principal); D68.69 Other thrombophilia; E44.1 Mild protein-calorie malnutrition; Z68.1 Body mass index [BMI] 19.9 or less, adult; I10 Essential (primary) hypertension; D72.829 Elevated white blood cell count, unspecified; F03.90 Unspecified dementia, unspecified severity, without behavioral disturbance, psychotic disturbance, mood disturbance, and anxiety; E78.5 Hyperlipidemia, unspecified; R79.89 Other specified abnormal findings of blood chemistry; K21.9 Gastro-esophageal reflux disease without esophagitis; R29.6 Repeated falls; Z79.82 Long term (current) use of aspirin; Z90.710 Acquired absence of both cervix and uterus; M85.80 Other specified disorders of bone density and structure, unspecified site; W01.0XXA Fall on same level from slipping, tripping and stumbling without subsequent striking against object, initial encounter; Y93.9 Activity, unspecified; Y92.009 Unspecified place in unspecified non-institutional (private) residence as the place of occurrence of the external cause; E83.42 Hypomagnesemia; D64.9 Anemia, unspecified
CPT/HCPCS: 36415; 71045-TC; 73502; 73700-TC; 80048-TC; 80053-TC; 80061-TC; 81000-TC; 82728-TC; 83540-TC; 83735-TC; 84100-TC; 85025-TC; 85730-TC; 86850-TC; 86921-TC; 87081-TC; 87086-TC; 93307-TC; 97110-TC; 97116-TC; 97530-TC; 97535-TC; G0378; J0690; J1650; J3010; J3475; J7030; J7060; P9016-BL